=== PATIENT | female | born 1975 ===

== ENCOUNTER 2017-12-15 08:05 | Emergency (ER) | payer BC ==
[2017-12-15 09:00] LABS: Basophils % (Auto) 0.3 % (0.0-1.8); Eosinophils % (Auto) 0.6 % (0.0-4.3); Hematocrit 37.9 % (30.3-42.9); Hemoglobin 13.4 gm/dl (10.1-14.3); Lymphocytes # (Auto) 1.4 K/mm3 (1.2-5.4); Lymphocytes % (Auto) 25.9 % (13.4-35.0); Mean Corpuscular HGB Conc 35 % (30-34); Mean Corpuscular Hemoglobin 29 pg (28-32); Mean Corpuscular Volume 82 fl (79-97); Monocytes # (Auto) 0.2 K/mm3 (0.0-0.8); Monocytes % (Auto) 4.3 % (0.0-7.3); Platelet Count 190 K/mm3 (140-440); Red Blood Count 4.62 M/mm3 (3.65-5.03); Red Cell Distribution Width 13.4 % (13.2-15.2)
--- NOTE | 2017-12-15 10:56 | Ultrasound Report ---
ULTRASOUND OB LESS THAN 14 WEEKS FETUS ULTRASOUND OB TRANSVAGINAL HISTORY: Vaginal bleeding with 10 weeks . COMPARISON: None. TECHNIQUE: Transabdominal and transvaginal ultrasound with color doppler interrogation. FINDINGS: Uterus: The uterus measures 10 x 8 x 8 cm. No uterine mass is identified. Normal cervix. Endometrium: An intrauterine gestational sac containing a pole and yolk sac is identified. [place]-rump length measures 17 mm which correlates with an 8 week, 1 day . No heart rate could be detected on Doppler interrogation. No subchorionic hemorrhage. Right ovary: Normal. Left ovary: Normal. No pelvic fluid or mass is identified. Normal color doppler interrogation. IMPRESSION: Findings consistent with demise.
[2017-12-15 16:14] VITALS: BP 110/77
--- NOTE | 2017-12-15 16:37 | Emergency Department Report ---
ED HPI - General Chief complaint: Vaginal Bleeding Stated complaint: VAG BLEEDING/10 WKS PREG. Time Seen by Provider: 12/15/17 15:51 Source: patient Mode of arrival: Ambulatory Limitations: Language Barrier - History of Present Illness Initial comments: 42-year-old female approximately 10 weeks that presents with one day of bilateral lower abdominal pain and vaginal bleeding. Patient has not HAD an ultrasound to confirm dates yet. No urinary symptoms. Afebrile. No chest pain or short of breath. Currently is having light vaginal bleeding. Patient has not had to change her tampon yet. - Related Data Previous Rx's Medication Instructions Recorded Last Taken Type Ondansetron [Zofran Odt] 4 mg PO Q4HR PRN #10 tab.rapdis 12/15/17 Unknown Rx Allergies Allergy/AdvReac Type Severity Reaction Status Date / Time No Known Allergies Allergy Unverified 12/15/17 08:26 ED Review of Systems ROS: Stated complaint: VAG BLEEDING/10 WKS PREG. Other details as noted in HPI Comment: All other systems reviewed and negative Gastrointestinal: abdominal pain Genitourinary: other (vaginal bleeding) ED Past Medical Hx - Past Medical History Previous Medical History?: Yes Additional medical history: VAGINAL DELIVERY X 6 - Surgical History Past Surgical History?: No - Social History Smoking Status: Never Smoker Substance Use Type: None - Medications Home Medications: Home Medications Medication Instructions Recorded Confirmed Last Taken Type Ondansetron [Zofran Odt] 4 mg PO Q4HR PRN #10 tab.rapdis 12/15/17 Unknown Rx ED Physical Exam - General Limitations: Language Barrier General appearance: alert, in no apparent distress - Head Head exam: Present: atraumatic, normocephalic - Eye Eye exam: Present: normal appearance - ENT ENT exam: Present: mucous membranes moist - Neck Neck exam: Present: normal inspection - Respiratory Respiratory exam: Present: normal lung sounds bilaterally. Absent: respiratory distress - Cardiovascular Cardiovascular Exam: Present: regular rate, normal rhythm. Absent: systolic murmur, diastolic murmur, rubs, gallop - GI/Abdominal GI/Abdominal exam: Present: soft, tenderness (mild LLQ/RLQ tenderness), normal bowel sounds - Extremities Exam Extremities exam: Present: normal inspection - Back Exam Back exam: Present: normal inspection - Neurological Exam Neurological exam: Present: alert, oriented X3 - Psychiatric Psychiatric exam: Present: normal affect, normal mood - Skin Skin exam: Present: warm, dry, intact, normal color. Absent: rash ED Course Vital Signs 12/15/17 12/15/17 08:22 16:00 Temperature 98.1 F 98.4 F Pulse Rate 77 69 Respiratory 18 16 Rate Blood Pressure 138/69 Blood Pressure 110/77 [Left] O2 Sat by Pulse 100 100 Oximetry ED Medical Decision Making - Lab Data Result diagrams: 12/15/17 08:34 - Medical Decision Making 42-year-old female approximately 10 weeks and presents with vaginal bleeding. Vital signs stable. Patient well-appearing. CBC stable. Patient is B+ blood type. Ultrasound shows findings of intrauterine demise. I offered the patient misoprostol. Patient stated that she preferred to do the natural way. She has follow-up with her OB tomorrow. The patient was okay with waiting until tomorrow to do the pelvic exam. Since patient is stable and not an emergent risk at this time, thought that this is appropriate. She has been instructed to return to the ER of her bleeding has not improved in 4 days. - Differential Diagnosis IUFD, incomplete vs threatened vs complete , DIC Critical care attestation.: If time is entered above; I have spent that time in minutes in the direct care of this critically ill patient, excluding procedure time. ED Disposition Clinical Impression: IUFD (intrauterine ) Disposition: DC-01 TO HOME OR SELFCARE Is pt being admited?: No Condition: Stable Instructions: Intrauterine Demise (ED) Additional Instructions: Please follow up with your OB tomorrow about your intrauterine demise. If the bleeding doesn't improve by 12/19/17, please return to the ER for re-evaluation. You can take 1000 mg tylenol every 6 hours as needed for pain relief. Prescriptions: Ondansetron [Zofran Odt] 4 mg PO Q4HR PRN #10 tab.rapdis PRN Reason: Nausea And Vomiting Referrals: PRIMARY CARE, [Primary Care Provider] - 3-5 Days
== END 2017-12-15 17:01 | disposition home or self-care (01) ==
LOC: ED 08:05
DX: O36.4XX1 Maternal care for intrauterine death, fetus 1 (principal); Z3A.10 10 weeks gestation of pregnancy
CPT/HCPCS: 36415; 76801; 76817; 84702; 85025; 86850; 86900; 86901; 99284